=== PATIENT | male | born 1970 | race Caucasian/White ===

== ENCOUNTER 2018-03-02 09:25 | Day surgery (SDC) | payer OTHER, MEDICAID, MEDICARE ==
[~2018-03-02 09:25] MED LIST: LIDOCAINE 2% (SDV) 5 ML INJ
[2018-03-02] MEDS ORDERED: LIDOCAINE 2% (SDV) 5 ML INJ (09:27)
[2018-03-02] MEDS: CYCLOPENTOLATE/PHENYLEPH 2 ML OPH OPER (10:19)
[2018-03-02] MEDS: SOD CHLORIDE 0.9% 1,000 ML IV (10:20)
[2018-03-02] MEDS: DICLOFENAC 0.1% 2.5 ML OPH OPER (10:20)
[2018-03-02] MEDS: MOXIFLOXACIN 0.5% 3 ML OPH OPER (10:20)
[2018-03-02] MEDS: TROPICAMIDE 1% 15 ML OPH OPER (10:20)
[2018-03-02] MEDS ORDERED: GENTAMICIN 80 MG INJ (11:32)
[2018-03-02] MEDS ORDERED: EPINEPHrine 1 MG INJ (11:32)
[2018-03-02] MEDS ORDERED: BUPIVACAINE 0.75% (MPF) 10 ML INJ (11:32)
[2018-03-02] MEDS: CEFAZOLIN 1 GM INJ (11:56)
[2018-03-02] MEDS ORDERED: MIDAZOLAM 1 MG/ML 2 ML INJ IV (12:00)
[2018-03-02] MEDS ORDERED: MEPERIDINE 25 MG INJ IV (12:00)
[2018-03-02] MEDS ORDERED: ALBUTEROL 0.083% (NEB) 2.5 MG/3 ML AMP HHN (12:00)
[2018-03-02] MEDS ORDERED: OXYCODONE/ACETAMINOPHEN (5/325) TAB PO ×2 (12:00)
[2018-03-02] MEDS ORDERED: LABETALOL HCL 20MG INJ IV (12:00)
[2018-03-02] MEDS ORDERED: TRIMETHOBENZAMIDE 100 MG/ML VIAL IM (12:00)
[2018-03-02] MEDS ORDERED: FENTAnyl 50 MCG/ML VIAL IV ×3 (12:00)
[2018-03-02] MEDS ORDERED: hydrALAzine 20 MG INJ IV (12:00)
[2018-03-02] MEDS ORDERED: IPRATROPIUM (NEB) 0.5 MG/2.5 ML AMP HHN (12:00)
[2018-03-02] MEDS ORDERED: HYDROmorphONE 1 MG/5 ML IV SYRINGE IV (12:00)
[2018-03-02] MEDS ORDERED: EPHEDrine SULFATE 50 MG/5 ML SYG IV (12:00)
[2018-03-02] MEDS ORDERED: ONDANSETRON 4 MG INJ IV (12:00)
[2018-03-02] MEDS ORDERED: DIPHENHYDRAMINE 50 MG INJ IV (12:00)
[2018-03-02] MEDS: NA HYALURONATE/CHONDROITIN 0.5 ML SYG LEFT EYE (12:05)
[2018-03-02] MEDS: CARBACHOL 0.01% 1.5 ML OPH INJ (12:05)
[2018-03-02] MEDS: HYDROmorphONE 1 MG/5 ML IV SYRINGE IV ×2 (12:24→12:33)
== END 2018-03-02 13:40 | disposition home or self-care (01) ==
LOC: SDS 09:25
DX: H25.042 Posterior subcapsular polar age-related cataract, left eye (principal); E78.5 Hyperlipidemia, unspecified; E11.9 Type 2 diabetes mellitus without complications; I10 Essential (primary) hypertension
CPT/HCPCS: 66984; 82962